=== PATIENT | male | born 1995 ===

== ENCOUNTER 2019-06-23 20:37 | Emergency (ER) | payer OTHER ==
[~2019-06-23] VITALS: Ht 180.3 cm; Wt 72.6 kg
[~2019-06-23 20:37] MED LIST: 5-Htp100 MG PO; THERA1 EACH PO
[2019-06-23] MEDS ORDERED: Zofran4 MG PO (21:13)
== END 2019-06-23 21:23 | disposition home or self-care (01) ==
LOC: ER 20:37
DX: K52.9 Noninfective gastroenteritis and colitis, unspecified (principal); R00.2 Palpitations; Z79.899 Other long term (current) drug therapy
CPT/HCPCS: 93005; 93010; 99284-25; A9270-GY

== ENCOUNTER 2022-09-26 10:34 | Day surgery (SDC) | payer OTHER ==
[~2022-09-26] VITALS: Ht 180.3 cm; Wt 67.4 kg
[~2022-09-26 10:34] MED LIST changes: +Zofran4 MG PO
[2022-09-26] MEDS ORDERED: ERGO400 (10:44)
== END 2022-09-26 12:10 | disposition home or self-care (01) ==
LOC: ORSCSDS 10:34
PROVIDERS: Internal Medicine Gastroenterology
PROC: 0DB68ZX Excision of Stomach, Via Natural or Artificial Opening Endoscopic, Diagnostic (ICD-10-PCS; principal; 2022-09-26 11:45)
PROC: 0DB58ZX Excision of Esophagus, Via Natural or Artificial Opening Endoscopic, Diagnostic (ICD-10-PCS; principal; 2022-09-26 11:45)
PROC: 0DB98ZX Excision of Duodenum, Via Natural or Artificial Opening Endoscopic, Diagnostic (ICD-10-PCS; principal; 2022-09-26 11:45)
DX: K30 Functional dyspepsia (principal); R19.7 Diarrhea, unspecified; H50.40 Unspecified heterotropia; K20.90 Esophagitis, unspecified without bleeding; K29.70 Gastritis, unspecified, without bleeding
CPT/HCPCS: 88305; 88342; J2704; J7120

== ENCOUNTER 2023-01-04 12:57 | Day surgery (SDC) | payer OTHER ==
[~2023-01-04] VITALS: Ht 180.3 cm; Wt 68.1 kg
[~2023-01-04 12:57] MED LIST changes: +ERGO400
[2023-01-04] MEDS ORDERED: OMEP20ER PO (13:59)
== END 2023-01-04 15:39 | disposition home or self-care (01) ==
LOC: ORSCSDS 12:57
PROVIDERS: Internal Medicine Gastroenterology
PROC: 0DJ08ZZ Inspection of Upper Intestinal Tract, Via Natural or Artificial Opening Endoscopic (ICD-10-PCS; principal; 2023-01-04 14:15)
DX: R10.13 Epigastric pain (principal); Z87.19 Personal history of other diseases of the digestive system; K21.9 Gastro-esophageal reflux disease without esophagitis; R11.10 Vomiting, unspecified; Z79.899 Other long term (current) drug therapy
CPT/HCPCS: J0330; J0461; J2405; J2704; J7120; Q9968